=== PATIENT | female | born 1970 | race African-American/Black ===

== ENCOUNTER 2016-11-27 11:11 | Inpatient (IN) | payer OTHER ==
[~2016-11-27] VITALS: Ht 165.1 cm; Wt 68.5 kg
[2016-11-27] VITALS (12 sets, daily range): BP systolic 66–151; BP diastolic 35–72
--- NOTE | ~2016-11-27 | EKG ---
[address] [place] [address] ELECTROCARDIOGRAM REPORT Name: MICAELA WINCHESTER ELLIOTT Room #: 241-P ADM IN M.R.#: [id number] Admission: 11/27/16 Attend Phys: Rosa Kunz Discharge: Date of : 66 Report #: [id number] THIS REPORT FOR: //name// [facility] ED Test Date: 2016-11-27 Test Time: 11:42:17 Pat Name: MICAELA WINCHESTER Department: Room: 241 Gender: F Journalist: [id number] : 1970 Requested By: Yaneth Harris Order Number: [id number] MD: Jluis Pace Measurements Intervals [place] Rate: 103 P: 16 FL: 135 QRS: 9 QRSD: 90 T: 54 QT: 375 QTc: 491 Interpretive Statements Sinus tachycardia Ventricular bigeminy Low voltage, precordial leads Compared to ECG 09/17/2014 09:00:42 Ventricular premature complex(es) now present Low QRS voltage now present Sinus rhythm no longer present Right-axis deviation no longer present Electronically Signed On 11-27-2016 22:37:44 CDT by Jluis Pace [email or web address] <ELECTRONICALLY SIGNED> By: Jluis Pace MD 11/27/16 2237 1142 1142 Jluis Pace MD /EPI
--- NOTE | ~2016-11-27 | HC ---
[facility] [address] [place] [address] CONSULTATION Name: MICAELA WINCHESTER Room #: 241-P ADM IN M.R.#: [id number] Admission: 11/27/16 Attend Phys: Rosa Knuz Discharge: Date of : 66 Report #: [id number] THIS REPORT FOR: //name// CC: Rosa Hauser REASON FOR CONSULTATION: End-stage renal disease. REASON FOR PRESENTATION: Repeated falls. HISTORY OF PRESENT ILLNESS: The patient is well known to me. She is a 46-year-old who has had repeated falls in the last week or so after dialysis. She presented complaining of back and neck pain. She stated that her blood pressure has been on the low side in the last few days. As it turned out after discussing with the dialysis nurses, the average fluid pull was about 3 liters. No chest pain. No shortness of breath. The patient suffers from extensive medical history including diabetes mellitus, hypertension, extreme with very poor blood vessels. She has had kidney transplant back in 2002 that had failed. She is in the process of getting another transplant. During the hospital stay, her blood pressure was on the low side; however measuring her blood pressure manually revealed that she had a blood pressure of 100/60. She is due for dialysis today and I was asked to evaluate her accordingly. PAST MEDICAL HISTORY: Extensive including the followin. End-stage renal disease. 2. Diabetes mellitus. 3. Failed kidney transplant. 4. Peripheral vascular disease. 5. Autonomic neuropathy. 6. Gastroparesis. 7. Remote history of retinopathy. 8. Occipital CVA. 9. Combines kidney pancreas transplant failed. 10. Labile hypertension. 11. Previous gastric pacemaker infection. 12. Hypothyroidism. 13. C. diff. 14. Longstanding depression. PAST SURGICAL HISTORY: As above. 1. Failed kidney pancreas transplant x 1. 2. Numerous access issues and AV grafts. ALLERGIES: CONTRAST, NAPROSYN, VANCOMYCIN. FAMILY HISTORY: Hypertension and diabetes mellitus. [facility] [address] [place] [address] CONSULTATION Name: MICAELA WINCHESTER ELLIOTT Room #: [address] [place] [address] IN .R.#: [id number] Admission: 11/27/16 Attend Phys: Rosa Kunz Discharge: Date of : 66 Report #: [id number] SOCIAL HISTORY: She used to be a nurse. Nonsmoker. No drug or alcohol abuse. Now disabled. REVIEW OF SYSTEMS: GENERAL: No fever or chills. CARDIOVASCULAR: No chest pain or palpitation. PULMONARY: No cough or hemoptysis. GASTROINTESTINAL: Occasional nausea. NEUROLOGICAL: As per the history of present illness. ANTIBIOTICS: 1. Lisinopril. 2. Aspirin. 3. Gabapentin. 4. Scopolamine. 5. Levothyroxine. 6. Calcium acetate. 7. Cinacalcet. PHYSICAL EXAMINATION: GENERAL: Alert, oriented. VITAL SIGNS: Blood pressure measured by me is 100/60, pulse rate is 93, temperature 36.5. HEAD AND NECK: No jugular venous distention. However, she is tender all over. CARDIOVASCULAR: No rub detected. CHEST: Clear to auscultation bilaterally. CARDIOVASCULAR: No rub detected. ABDOMEN: Soft, nontender. LOWER EXTREMITIES: No edema. NEUROLOGICAL: Symmetrical power and sensation in both upper extremities and lower extremities. LABORATORY DATA: Reviewed. Mild leukocytosis. IMAGING: She just had a chest x-ray with a carotid Doppler. ASSESSMENT, IMPRESSION AND PLAN: 1. End-stage renal disease. 2. Autonomic dysfunction. 3. Chronic hypertension. 4. 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 6. We will arrange for the patient to have her usual dialysis every Thursday, Thursday and Thursday. We will be very gentle with her fluid removal. I will talk with her outpatient dialysis units regarding the ultrafiltration. 7. The patient has hyperparathyroid bone disease. She does not have any [address] [address] CONSULTATION Name: MICAELA WINCHESTER ELLIOTT Room #: 241-P [facility] IN ..#: [id number] Admission: 11/27/16 Attend Phys: Rosa Kunz Discharge: Date of : 66 Report #: [id number] evidence of neurological dysfunction; however, I would rule out cervical fracture with a CT scan. I will defer that to the primary care team. 8. Continue with her other dialysis related medications including her phosphorus binders. By: [id number] Umang Reddy MD /sandrine
--- NOTE | ~2016-11-27 | 2DMMODE ---
[facility] [address] [place] [address] 2 D/M-MODE ECHOCARDIOGRAM Name: MICAELA WINCHESTER Room #: 170-11 ADM IN M.R.#: [id number] Admission: 11/27/16 Attend Phys: Rosa Woody Discharge: Date of : 66 Date of Service: 11/27/16 1617 Report #: [id number] THIS REPORT FOR: //name// APPROVED REPORT Study performed: 11/27/2016 14:55:09 EXAM: Comprehensive 2D, Doppler, and color-flow Echocardiogram Patient Location: ER Room #: 11 Status: routine BSA: 1.74 BP: 151/67 mmHg Other Information Study Quality: Adequate Technically limited study due to inability to position patient. Indications Diabetes Syncope 2D Dimensions RVDd: 24.76 mm LVEF(%): 62.82 (>50%) IVSd: 9.52 (7-11mm) LVOT Diam: 14.78 (18-24mm) LVDd: 33.64 mm PWd: 10.23 (7-11mm) Ascending Ao: 26.27 (22-36mm) LVDs: 22.52 (25-40mm) Aortic Root: 24.36 mm IVC: 10.00 mm Bass's LVEF: 62.82 % Volumes Left Atrial Volume (Systole) Single Plane 4CH: 33.80 mL Single Plane 2CH: 17.38 mL LA ESV Index: 14.00 mL/m2 Aortic Valve AoV Peak Kale.: 1.55 m/s AO Peak Gr.: 9.62 mmHg LVOT Max P.55 mmHg LVOT Max V: 1.07 m/s DANIEL Vmax: 1.18 cm2 Mitral Valve [facility] [address] [place] [address] 2 D/M-MODE ECHOCARDIOGRAM Name: MICAELA WINCHESTER [facility] Room #: 170- ADM IN .R.#: [id number] Admission: 11/27/16 Attend Phys: Rosa Woody Discharge: Date of : 66 Date of Service: 11/27/16 1617 Report #: [id number] E/A Ratio: 1.3 MV Decel. Time: 202.37 ms MV E Max Kale.: 0.79 m/s MV A Kale.: 0.63 m/s MV PHT: 58.69 ms IVRT: 79.58 ms Pulmonary Valve PV Peak Kale.: 0.94 m/s PV Peak Gr.: 3.53 mmHg Pulmonary Vein P Vein S: 0.69 m/s P Vein A: 0.27 m/s P Vein D: 0.46 m/s P Vein A Dur.: 114.2 msec P Vein S/D Ratio: 1.50 Tricuspid Valve RAP Estimate: 5.00 mmHg Left Ventricle The left ventricle is normal size. Regional wall motion is not well visualized but grossly normal. There is normal left ventricular wall thickness. The left ventricular systolic function is normal. The left ventricular ejection fraction is within the normal range. LVEF is 65%. This study is not technically sufficient to allow evaluation of the LV diastolic function due to varied LV inflow. Right Ventricle The right ventricle is normal size. The right ventricular systolic function is normal. Atria The left atrium size is normal. The right atrium size is normal. Aortic Valve The aortic valve is normal in structure. No aortic regurgitation is present. There is no aortic valvular stenosis. Mitral Valve The mitral valve is grossly normal in structure. There is no mitral valve regurgitation noted. No evidence of mitral valve stenosis. Tricuspid Valve The tricuspid valve is normal in structure. There is no tricuspid valve regurgitation noted. Unable to assess PA pressure. [facility] [address] [place] [address] 2 D/M-MODE ECHOCARDIOGRAM Name: MICAELA WINCHESTER Room #: 170-11 [facility] [place] [facility]#: [id number] Admission: 11/27/16 Attend Phys: Rosa Woody Discharge: Date of : 66 Date of Service: 11/27/16 1617 Report #: [id number] Pulmonic Valve Pulmonic valve is not well visualized. There is no pulmonic valvular regurgitation. Great Vessels The aortic root is normal in size. IVC is normal in size and collapses >50% with inspiration. Pericardium There is no pericardial effusion. <Conclusion> Technically limited study The left ventricular systolic function is normal. Regional wall motion is not well visualized but grossly normal. LVEF is 65%. The aortic valve is normal in structure. No aortic stenosis or insufficiency The mitral valve is grossly normal in structure, no mitral valve regurgitation Pulmonary artery pressure could not be reliably ascertained There is no pericardial effusion. <ELECTRONICALLY SIGNED> By: Onofre Guerra MD, FACC 11/27/16 161 16 16 Onofre Guerra MD, FACC /INF
[~2016-11-27 11:11] MED LIST: ADULT LOW DOSE81 MG PO; ANCEF 1GM1 GM/50 M1 IV; BENADRYL25 MG OR; BRIMONIDINE TAR1 BO1 OPHTHALMIC; CARVEDILOL6.25 MG PO; CEFAZOLIN1 GM/50 M1 IV; COMPAZINE10 MG PO; COMPAZINE25 MG RE; COUMADIN 2 MG TA2 M1 PO; COUMADIN 2.5MG2.5 M1 PO; CYCLOBENZAPRINE5 MG PO; CYMBALTA30 MG PO; CYMBALTA60 MG PO; DOXYCYCLINE HYC50 MG PO; EFFEXOR XR75 MG PO; EFFEXOR75 MG; EPOGEN10000 UNIT SUBQ; EUCERIN CREME120 GM; FERRELCIT IV; GABAPENTIN300 MG PO; HECTOROL2 MCG/1 ML IV; KEFLEX500 MG PO; LEVAQUIN 250 M250 MG PO; LEVOTHROID 00.075 M1 PO; LEVOTHROID75 MCG PO; LEVOTHYROXINE 0.15MG PO; LISINOPRIL10 MG PO; LISINOPRIL5 MG PO; LOMOTIL TABLET1 EACH PO; METHYLIN20 MG PO; METOCLOPRAMIDE10 MG PO; MIRALAX255 GM OR; MIRTAZAPINE30 M1 SL; MIRTAZAPINE45 MG PO; MOBIC7.5 MG PO; NEPHROCAPS SOFT1 CAP PO; NEURONTIN 300300 M1 PO; NITROGLYCERIN TOP; NORCO 5-325 TA1 EACH PO; NOVOLOG100 UNIT/1; OMEPRAZOLE40 MG PO; PERCOCET 5-3251 EACH PO; PHENERGAN 25 MG25 M1 PO; PHOSLO667 MG PO; PROTONIX40 M2 PO; REGLAN 10 MG TA10 MG PO; RENAL SOFTGEL1 MG PO; SENSIPAR60 MG PO; TIMOLOL MA0.5 %/5 M2 OPHTHALMIC; TRANSDERM-SCO1 PATC1 PAD; TRANSDERM-SCO1 PATC1 TD; TRAVATAN Z5 ML OPHTHALMIC; TRIAMCINOLONE A80 G2 TOP; XANAX 0.5 MG0.5 MG PO; ZANAFLEX4 MG PO; ZOFRAN ODT4 MG PO; ZOLOFT 50 MG TA50 M1 PO; [UNRECOGNIZED DRUG - CODE] IJ; [UNRECOGNIZED DRUG - OTHER]
[2016-11-27 12:15] LABS: HEMATOCRIT 33.3 % (37.0-47.0); HEMOGLOBIN 10.6 gm/dL (12.0-15.0); MANUAL DIFF YES; MCH 26.3 pg (26.0-34.0); MCHC 31.8 g/dL (28.0-37.0); MCV 82.9 fL (80.0-100.0); PLATELET COUNT 163 thou/uL (150-400); RBC 4.02 mil/uL (4.20-5.00); WBC 13.8 thou/uL (4.0-11.0)
[2016-11-27 12:37] LABS: ABSOLUTE NEUTROPHILS 9.4 thou/uL (1.4-8.2); ANISOCYTOSIS SLIGHT; LARGE PLATELETS FEW; PLATELET ESTIMATE NORMAL; TOTAL CELL COUNT 100
[2016-11-27 12:39] LABS: CALCIUM 8.5 mg/dL (8.5-10.1); CREATININE 7.5 mg/dL (0.6-1.0); POTASSIUM 4.4 mmol/L (3.5-5.1)
[2016-11-27 12:45] LABS: ALBUMIN 3.4 g/dL (3.4-5.0); TOTAL BILIRUBIN 0.7 mg/dL (<0.1-1.0); TOTAL PROTEIN 9.1 g/dL (6.4-8.2)
[2016-11-28] VITALS (28 sets, daily range): BP systolic 60–136; BP diastolic 26–78
[2016-11-28 06:12] LABS: ALBUMIN 2.5 g/dL (3.4-5.0); ANION GAP 12 mmol/L (7-16); BUN 50 mg/dL (7-18); CALCIUM 7.8 mg/dL (8.5-10.1); CHLORIDE 99 mmol/L (98-107); CO2 26 mmol/L (21-32); GLUCOSE 103 mg/dL (74-106); PHOSPHORUS 5.5 mg/dL (2.5-4.9); POTASSIUM 4.4 mmol/L (3.5-5.1); SODIUM 137 mmol/L (136-145); TROPONIN-I < 0.04 ng/mL (<0.04-0.07)
[2016-11-28 06:19] LABS: CREATININE 8.5 mg/dL (0.6-1.0)
[2016-11-28 23:09] LABS: HEP B SURFACE Ab(ANTI-HBS Reactive (())
== END 2016-11-28 17:46 | disposition home or self-care (01) | DRG 314 ==
LOC: ER 11:11 → EROBS 14:17 → ICU 14:17 → 4E 16:53 → ICU 22:07
PROVIDERS: Hospitalist; Physician Assistant
PROC: 5A1D70Z Performance of Urinary Filtration, Intermittent, Less than 6 Hours Per Day (ICD-10-PCS; principal; 2016-11-28)
DX: I95.9 Hypotension, unspecified (principal); N18.6 End stage renal disease; I12.0 Hypertensive chronic kidney disease with stage 5 chronic kidney disease or end stage renal disease; Z94.0 Kidney transplant status; E11.22 Type 2 diabetes mellitus with diabetic chronic kidney disease; E11.51 Type 2 diabetes mellitus with diabetic peripheral angiopathy without gangrene; E11.43 Type 2 diabetes mellitus with diabetic autonomic (poly)neuropathy; E21.3 Hyperparathyroidism, unspecified; K31.84 Gastroparesis; E11.319 Type 2 diabetes mellitus with unspecified diabetic retinopathy without macular edema; E03.9 Hypothyroidism, unspecified; F32.9 Major depressive disorder, single episode, unspecified; Z79.4 Long term (current) use of insulin; Z79.82 Long term (current) use of aspirin; Z79.899 Other long term (current) drug therapy; Z86.73 Personal history of transient ischemic attack (TIA), and cerebral infarction without residual deficits; Z99.2 Dependence on renal dialysis; Z88.8 Allergy status to other drugs, medicaments and biological substances; Z88.1 Allergy status to other antibiotic agents; Z91.041 Radiographic dye allergy status; Z82.49 Family history of ischemic heart disease and other diseases of the circulatory system; Z83.3 Family history of diabetes mellitus; Z23 Encounter for immunization
CPT/HCPCS: 10078; 32100

== ENCOUNTER 2017-03-17 19:36 | Inpatient (IN) | payer OTHER ==
[~2017-03-17] VITALS: Ht 165.1 cm; Wt 73.0 kg
--- NOTE | ~2017-03-17 | HC ---
[facility] [place] [address] [address] CONSULTATION Name: MICAELA WINCHESTERVONNE Room #: 349-I [facility] IN M.R.#: [id number] Admission: 03/17/17 Attend Phys: Rosa Kunz Discharge: 03/19/17 Date of : 66 Report #: [id number] THIS REPORT FOR: //name// CC: Rosa Hauser REASON FOR CONSULTATION: Low blood pressure and low blood sugar. HISTORY OF PRESENT ILLNESS: This is a 46-year-old with a very complicated past medical history including brittle diabetes, hypertension, end-stage renal disease. She is maintained on dialysis every Thursday, Thursday and Thursday. She has had numerous hospitalizations for different issues in the past including febrile illnesses, leukocytosis with no identifiable sources. She has had repeated issues with ulcers related to peripheral arterial disease. She was found down nonresponsive by her boyfriend who checked her glucose and was found to be 65. Gave her the appropriate medications and called EMS who brought her to the emergency room. In the emergency room, she was found to be hypotensive and had a leukocytosis with a blood cell count of 20,000 and was admitted for further evaluation and management. She denies fever or chills. Her current insulin regimen is being adjusted by her special education bus driver as she is currently utilizing an insulin pump. ALLERGIES: 1. FENTANYL. 2. IODINATED CONTRAST. 3. NAPROXEN. PAST MEDICAL HISTORY: Extensive and includes the followin. Kidney transplant, status post failure. 2. Nephrectomy. 3. End-stage renal disease, maintained on hemodialysis. 4. Hypertension. 5. Cataract. 6. 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 7. AV graft with multiple revisions. 8. Achilles tendon repair. 9. Small-bowel resection. 10. 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 11. Occipital CVA. 12. Depression. 13. Hypothyroidism. 14. Status post gastric pacemaker insertion and removal. FAMILY HISTORY: Significant for heart disease with the mom. Dad with lung cancer. MEDICATIONS: [facility] [address] [place] [place] [address] CONSULTATION Name: MICAELA WINCHESTER ELLIOTT Room #: 349-I [facility] IN M.R.#: [id number] Admission: 03/17/17 Attend Phys: Rosa Kunz Discharge: 03/19/17 Date of : 66 Report #: [id number] 1. Sensipar. 2. Insulin. 3. Omeprazole. 4. Gabapentin. 5. Levothyroxine. 6. Acetaminophen. REVIEW OF SYSTEMS: GENERAL: No fever or chills. CARDIOVASCULAR: As per the history of present illness. PULMONARY: No cough or hemoptysis. GASTROINTESTINAL: As per the history of present illness. GENITOURINARY: She is maintained on dialysis. PHYSICAL EXAMINATION: GENERAL: Alert and oriented. VITAL SIGNS: Her blood pressure is labile, this morning 84/43, yesterday was 153/64. HEAD AND NECK: No jugular venous distention. CHEST: No crackles. CARDIOVASCULAR: Regular with no rub. ABDOMEN: Soft, nontender with no hepatosplenomegaly. LOWER EXTREMITIES: Chronic edema. UPPER EXTREMITIES: Left AV graft with faint bruit. LABORATORY VALUES: Reviewed. White blood cell count 20,000, down to 14.5. Sodium 139, potassium 5.1, creatinine 8.4. Chest x-ray with no infiltrate. ASSESSMENT, IMPRESSION, AND PLAN: 1. End-stage renal disease. 2. Hypoglycemia. 3. Hypotension. 4. Leukocytosis with no focal source. 5. Cultures obtained, started empirically on vancomycin and Zosyn, follow and adjust accordingly. 6. Hemodialysis with gentle ultrafiltration. 7. Blood sugar. She is currently utilizing her insulin pump, but will have to consult with her special education bus driver. <ELECTRONICALLY SIGNED> By: Umang Reddy MD 03/23/17 0832 0910 1050 Umang Reddy MD /nt
--- NOTE | ~2017-03-17 | EKG ---
[facility] [address] [place] [address] ELECTROCARDIOGRAM REPORT Name: MIACELA WINCHESTER ELLIOTT Room #: 349-I ADM IN M.R.#: [id number] Admission: 03/17/17 Attend Phys: Rosa Kunz Discharge: Date of : 66 Report #: [id number] THIS REPORT FOR: //name// [facility] ED Test Date: 2017-03-17 Test Time: 19:48:49 Pat Name: MICAELA WINCHESTER Department: Room: 349 Gender: F Delivery Route Driver: Gabrielle Mcgarry : 1970 Requested By: Ángel Sommers Order Number: [id number] MD: Onofre Guerra Measurements Intervals [place] Rate: 85 P: 27 [place]: 134 QRS: 13 QRSD: 87 T: 51 QT: 448 QTc: 533 Interpretive Statements Sinus rhythm Ventricular bigeminy Low voltage, precordial leads Compared to ECG 02/06/2017 22:52:01 No significant changes Electronically Signed On 03-18-2017 15:53:21 PAN GREASER by Onofre Guerra [email or web address] <ELECTRONICALLY SIGNED> By: Onofre Guerra MD, [facility] 03/18/17 1553 47 47 Onofre Guerra MD, FAC /EPI
[~2017-03-17 19:36] MED LIST changes: +BACLOFEN 10MG T10 MG PO; +SYNTHROID175 MCG PO
[2017-03-17 19:37] VITALS: BP 81/51
[2017-03-17 21:13] LABS: TROPONIN-I < 0.04 ng/mL (<0.06)
[2017-03-17 21:25] LABS: ALBUMIN 2.9 g/dL (3.4-5.0); BUN 31 mg/dL (7-18); CO2 23 mmol/L (21-32); GLUCOSE 138 mg/dL (74-106); TOTAL BILIRUBIN 0.3 mg/dL (<0.1-1.0); TOTAL PROTEIN 7.9 g/dL (6.4-8.2)
[2017-03-17 21:28] LABS: ANION GAP 14 mmol/L (7-16); CHLORIDE 102 mmol/L (98-107); POTASSIUM 4.9 mmol/L (3.5-5.1); SODIUM 139 mmol/L (136-145)
[2017-03-17 21:36] LABS: HEMATOCRIT 45.7 % (37.0-47.0); HEMOGLOBIN 14.2 gm/dL (12.0-15.0); MCH 26.3 pg (26.0-34.0); MCV 84.9 fL (80.0-100.0); PLATELET COUNT 346 thou/uL (150-400); RBC 5.39 mil/uL (4.20-5.00); RDW 16.7 % (10.5-14.5); WBC 20.4 thou/uL (4.0-11.0)
[2017-03-17 21:40] LABS: CALCIUM 7.7 mg/dL (8.5-10.1); CREATININE 8.1 mg/dL (0.6-1.0); SGOT 26 U/L (15-37); SGPT 26 U/L (30-65)
[2017-03-17 22:02] LABS: ABSOLUTE NEUTROPHILS 17.1 thou/uL (1.4-8.2); ANISOCYTOSIS 1+; LARGE PLATELETS RARE; POLYCHROMASIA OCCASIONAL
[2017-03-17 23:08] VITALS: BP 138/82
[2017-03-17 23:30] VITALS: BP 162/88
[2017-03-18] MEDS ORDERED: TYLOPHEN500 MG PO (00:10)
[2017-03-18] MEDS ORDERED: PHENERGAN 25 MG25 M1 PO (00:11)
[2017-03-18] MEDS ORDERED: BENADRYL25 MG PO (00:12)
[2017-03-18 03:30] VITALS: BP 131/69
[2017-03-18 06:14] LABS: MCH 26.3 pg (26.0-34.0); MCHC 31.4 g/dL (28.0-37.0); MCV 83.7 fL (80.0-100.0); RBC 4.31 mil/uL (4.20-5.00); RDW 16.2 % (10.5-14.5); WBC 14.5 thou/uL (4.0-11.0)
[2017-03-18 06:17] LABS: HEMOGLOBIN 11.3 gm/dL (12.0-15.0)
[2017-03-18 06:30] LABS: CALCIUM 7.2 mg/dL (8.5-10.1); CREATININE 8.4 mg/dL (0.6-1.0); POTASSIUM 5.1 mmol/L (3.5-5.1)
[2017-03-18 07:51] VITALS: BP 153/64
[2017-03-18 08:42] VITALS: BP 81/43
[2017-03-18 11:21] VITALS: BP 101/55
[2017-03-18 14:45] VITALS: BP 151/93
[2017-03-18 18:10] LABS: GLYCOHEMOGLOBIN (HGB A1C) 9.6 % (4.8-5.6)
[2017-03-18 19:20] VITALS: BP 111/48
[2017-03-19 05:25] VITALS: BP 114/63
[2017-03-19 06:42] LABS: HEMATOCRIT 35.4 % (37.0-47.0); HEMOGLOBIN 11.1 gm/dL (12.0-15.0); MCH 26.2 pg (26.0-34.0); MCHC 31.5 g/dL (28.0-37.0); MCV 83.4 fL (80.0-100.0); RBC 4.25 mil/uL (4.20-5.00); RDW 16.4 % (10.5-14.5); WBC 10.1 thou/uL (4.0-11.0)
[2017-03-19 06:59] LABS: ALBUMIN 2.3 g/dL (3.4-5.0); CALCIUM 7.1 mg/dL (8.5-10.1); PHOSPHORUS 3.2 mg/dL (2.5-4.9)
[2017-03-19 07:04] LABS: CREATININE 5.5 mg/dL (0.6-1.0); POTASSIUM 4.1 mmol/L (3.5-5.1)
[2017-03-19 07:06] VITALS: BP 115/68
[2017-03-19 10:50] VITALS: BP 115/68
[2017-03-19 11:49] VITALS: BP 115/68
== END 2017-03-19 12:50 | disposition home or self-care (01) | DRG 314 ==
LOC: ER 19:36 → 3W 21:59 → EROBS 21:59 → 3W 23:11 → ENTRNSPT 03-19 12:18 → EDTRNSPTSTS 03-19 12:20 → 3W 03-19 12:50
PROVIDERS: Hospitalist; Nurse Practitioner Acute Care; Physician Assistant
PROC: 5A1D70Z Performance of Urinary Filtration, Intermittent, Less than 6 Hours Per Day (ICD-10-PCS; principal; 2017-03-18)
DX: I95.9 Hypotension, unspecified (principal); N18.6 End stage renal disease; Z94.0 Kidney transplant status; K21.9 Gastro-esophageal reflux disease without esophagitis; H40.9 Unspecified glaucoma; H54.61 Unqualified visual loss, right eye, normal vision left eye; E03.9 Hypothyroidism, unspecified; F32.9 Major depressive disorder, single episode, unspecified; E10.22 Type 1 diabetes mellitus with diabetic chronic kidney disease; E10.42 Type 1 diabetes mellitus with diabetic polyneuropathy; E10.649 Type 1 diabetes mellitus with hypoglycemia without coma; Z90.5 Acquired absence of kidney; Z89.421 Acquired absence of other right toe(s); Z86.73 Personal history of transient ischemic attack (TIA), and cerebral infarction without residual deficits; Z88.8 Allergy status to other drugs, medicaments and biological substances; Z88.1 Allergy status to other antibiotic agents; Z91.041 Radiographic dye allergy status; Z82.49 Family history of ischemic heart disease and other diseases of the circulatory system; Z98.49 Cataract extraction status, unspecified eye; Z99.2 Dependence on renal dialysis; Z80.1 Family history of malignant neoplasm of trachea, bronchus and lung
CPT/HCPCS: 10879; 32100